=== PATIENT | female | born 1965 | race Two or more races ===

== ENCOUNTER 2023-01-13 18:57 | Emergency (ER) | payer SELFPAY ==
[~2023-01-13] VITALS: Ht 157.5 cm; Wt 75.6 kg
[2023-01-13 20:27] VITALS: BP 154/78
[2023-01-13] MEDS ORDERED: IBU600T PO (21:18)
[2023-01-13] MEDS ORDERED: HYDR25CA PO (21:18)
[2023-01-13] MEDS: IBUPROFEN 800 MG TAB PO ONE ×2 (21:24→22:03)
[2023-01-13] MEDS: LORazepam 0.5 MG TAB PO ONE ×2 (21:24→22:03)
== END 2023-01-13 22:04 | disposition home or self-care (01) ==
LOC: ER 18:57
DX: S20.211A Contusion of right front wall of thorax, initial encounter (principal); S43.401A Unspecified sprain of right shoulder joint, initial encounter; F41.9 Anxiety disorder, unspecified; X58.XXXA Exposure to other specified factors, initial encounter; Y93.89 Activity, other specified; Y92.89 Other specified places as the place of occurrence of the external cause; Y99.8 Other external cause status
CPT/HCPCS: 71111; 73030